=== PATIENT | male | born 1955 | race Caucasian/White ===

== ENCOUNTER 2017-08-06 10:30 | Emergency (ER) | payer BC ==
[~2017-08-06] VITALS: Ht 170.2 cm; Wt 81.1 kg
[~2017-08-06 10:30] MED LIST: ASPIR 8181 M1 PO; ATORVASTATIN CA80 MG PO; BACTRIM,SEPT1 TABLET PO; CLINDAMYCIN HC300 MG PO; FIORICET 50-301 EACH PO; FLAGYL500 MG PO; GRALISE600 MG PO; LEVAQUIN500 MG PO; LISINOPRIL2.5 MG PO; LISINOPRIL5 MG PO; LOPRESSOR50 MG PO; Levaquin PO; Lopressor PO; METOPROLOL TART50 MG PO; NAPROXEN500 MG PO; NEXIUM20 MG PO; NORCO 5/3251 TABLET PO; PRAVACHOL80 MG PO; PREDNISONE20 MG PO; PRILOSEC20 MG PO; SUMATRIPTAN SUC50 MG PO; TOPROL XL25 MG PO; TRIAMTERENE W/1 EACH PO; TRIAMTERENE/HC1 EACH PO; VITAMIN B12-FO1 EACH PO; ZANAFLEX4 MG PO; Zestril,Prinivil PO
[2017-08-06 11:11] LABS: ADD MIUA? YES; BILIRUBIN NEGATIVE; BLOOD NEGATIVE; COLOR YELLOW ((YELLOW)); GLUCOSE (STRIP) NEGATIVE; KETONES NEGATIVE; LEUKOCYTES NEGATIVE; NITRITE NEGATIVE; PROTEIN (STRIP) NEGATIVE; SPECIFIC GRAVITY 1.011 (1.000-1.030); UROBILINOGEN 0.2 MG/DL (0.2-1.0)
[2017-08-06 11:19] LABS: BACTERIA RARE /HPF; EPITHELIAL CELLS RARE /HPF; HYALINE CASTS 0-5 /LPF; MUCUS TRACE /LPF; RED BLOOD CELLS 0-5 /HPF (0-5); UCUL ADDED? NO; WHITE BLOOD CELLS 0-5 /HPF (0-5)
[2017-08-06 11:21] LABS: HEMATOCRIT 45.2 % (38.0-50.0); MCHC 35.2 G/DL (30.0-36.0); MCV 85.3 FL (86-99); MEAN PLAT.VOLUME 11.2 uM^3 (9.0-12.4); PLATELET COUNT 304 K/uL (156-360); RBC DIS.WIDTH-CV 12.2 % (11.8-14.6); RBC DIS.WIDTH-SD 37.6 % (39-53); WHITE BLOOD COUNT 13.9 K/uL (4.1-10.2)
[2017-08-06 11:32] LABS: CHLORIDE 106 mEq/L (99-109); POTASSIUM 3.8 mEq/L (3.7-5.4); SODIUM 138 mEq/L (136-147)
[2017-08-06 11:34] LABS: GLUCOSE 99 mg/dL (70-99)
[2017-08-06 11:35] LABS: ANION GAP 15 MEQ/L (2-14)
[2017-08-06 11:36] LABS: TOTAL BILIRUBIN 1.6 mg/dL (0.0-1.0)
[2017-08-06 11:38] LABS: ALKALINE PHOSPHATASE 78 IU/L (3-129); GFR ESTIMATE (CALCULATED) > 59 mL/min/
[2017-08-06 11:39] LABS: UREA NITROGEN (BUN) 15 mg/dL (9-23)
[2017-08-06 11:41] LABS: LIPASE 47 U/L (1.0-51.0)
[2017-08-06 14:51] LABS: INTERNAL CONTROL VALID? YES
[2017-08-06 15:16] LABS: C DIFF TOXIN POSITIVE (NEGATIVE)
[2017-08-06 15:22] LABS: PROBE CHECK PASS
[2017-08-06] MEDS ORDERED: ZOFRAN ODT4 MG PO (15:36)
[2017-08-06] MEDS ORDERED: FLAGYL500 MG PO (15:36)
[2017-08-06] MEDS ORDERED: BENTYL20 MG PO (15:36)
[2017-08-06 15:50] VITALS: BP 142/94
== END 2017-08-06 15:52 | disposition home or self-care (01) ==
LOC: EME 10:30
PROVIDERS: Nurse Practitioner Family
DX: A04.7 Enterocolitis due to Clostridium difficile (principal); K57.92 Diverticulitis of intestine, part unspecified, without perforation or abscess without bleeding; K76.0 Fatty (change of) liver, not elsewhere classified; K21.9 Gastro-esophageal reflux disease without esophagitis; I10 Essential (primary) hypertension; E78.5 Hyperlipidemia, unspecified; Z79.82 Long term (current) use of aspirin; Z90.49 Acquired absence of other specified parts of digestive tract
CPT/HCPCS: 74177; 80053; 81003; 83630; 83690; 85027; 87493; 99281; 99285; J2405; J7030

== ENCOUNTER 2017-12-06 08:36 | Emergency (ER) | payer BC ==
[~2017-12-06] VITALS: Ht 172.7 cm; Wt 82.5 kg
[~2017-12-06 08:36] MED LIST changes: +BENTYL20 MG PO; +ZOFRAN ODT4 MG PO
[2017-12-06] MEDS ORDERED: MECLIZINE HCL25 MG PO (10:24)
[2017-12-06 10:40] VITALS: BP 125/82
== END 2017-12-06 10:40 | disposition home or self-care (01) ==
LOC: EME 08:36
DX: H81.399 Other peripheral vertigo, unspecified ear (principal); E78.5 Hyperlipidemia, unspecified; I10 Essential (primary) hypertension; K21.9 Gastro-esophageal reflux disease without esophagitis; Z88.5 Allergy status to narcotic agent
CPT/HCPCS: 93005; 99281; 99284

== ENCOUNTER 2018-02-06 12:06 | Emergency (ER) | payer OTHER, BC ==
[~2018-02-06] VITALS: Ht 172.7 cm; Wt 83.0 kg
[~2018-02-06 12:06] MED LIST changes: +MECLIZINE HCL25 MG PO
[2018-02-06 13:16] VITALS: BP 138/88
== END 2018-02-06 13:16 | disposition home or self-care (01) ==
LOC: EME 12:06
DX: R20.2 Paresthesia of skin (principal); Z77.098 Contact with and (suspected) exposure to other hazardous, chiefly nonmedicinal, chemicals; I10 Essential (primary) hypertension; E78.5 Hyperlipidemia, unspecified; K21.9 Gastro-esophageal reflux disease without esophagitis; Z88.5 Allergy status to narcotic agent; Z91.013 Allergy to seafood; Z79.82 Long term (current) use of aspirin
CPT/HCPCS: 99281; 99284

== ENCOUNTER 2018-03-31 12:08 | Emergency (ER) | payer OTHER, BC ==
[~2018-03-31] VITALS: Ht 172.7 cm; Wt 85.5 kg
[2018-03-31 15:51] VITALS: BP 132/94
== END 2018-03-31 15:52 | disposition home or self-care (01) ==
LOC: EME 12:08
DX: S09.90XA Unspecified injury of head, initial encounter (principal); M79.631 Pain in right forearm; W01.198A Fall on same level from slipping, tripping and stumbling with subsequent striking against other object, initial encounter; Y93.01 Activity, walking, marching and hiking; Y92.89 Other specified places as the place of occurrence of the external cause; E78.5 Hyperlipidemia, unspecified; I10 Essential (primary) hypertension; K21.9 Gastro-esophageal reflux disease without esophagitis; Z86.61 Personal history of infections of the central nervous system; Z79.82 Long term (current) use of aspirin; Z88.5 Allergy status to narcotic agent
CPT/HCPCS: 70450; 72125; 73090; 99281; 99284